=== PATIENT | male | born 2000 | race Two or more races ===

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

== ENCOUNTER 2019-01-13 12:50 | Emergency (ER) | payer MEDICAID ==
[~2019-01-13] VITALS: Ht 170.2 cm; Wt 61.2 kg
[~2019-01-13 12:50] MED LIST changes: +AMOXICILLIN500 MG ORAL; +GUAIFENESIN-CO118 M1 ORAL
[2019-01-13 12:58] VITALS: BP 134/66
[2019-01-13] MEDS ORDERED: NKM (13:01)
--- NOTE | 2019-01-13 13:01 | NUR ---
ED Nurse Note: Patient presents to ER due to painful cold sores on the lips. Reports no fever o chills. Regular, unlabored breathing noted. No facial grimacing or guarding noted. Placed patient in chair.
--- NOTE | 2019-01-13 13:12 | Emergency Room Report ---
History of Present Illness General Chief Complaint: Pain Source: Patient Present Illness HPI 18 y.o. Male with no significant past medical history here c/o a burning rash on corner of his mouth times one day. denies oral intercourse, howevere c/o having this rash before, beenig stressed lateley, and eating spicy food.patient denies sore throa and all other associated Denies chemical exposur or trauma to the face. Complains of tingling the site of the lesions. Denies fever and chill Allergies: Coded Allergies: No Known Allergies (Unverified , 12/20/18) Patient History Past Medical History: see triage record Past Surgical History: unable to obtain Reviewed Nursing Documentation: PMH: Agreed; PSxH: Agreed Nursing Documentation-PMH Past Medical History: No Stated History Hx Cardiac Problems: No Hx Hypertension: No Hx Pacemaker: No Hx Asthma: No Hx COPD: No Hx Diabetes: No Hx Cancer: No Hx Gastrointestinal Problems: No Hx Dialysis: No Hx Neurological Problems: No Hx Cerebrovascular Accident: No Hx Seizures: No Review of Systems All Other Systems: negative except mentioned in HPI Physical Exam Vital Signs Date Time Temp Pulse Resp B/P (MAP) Pulse Ox O2 Delivery O2 Flow Rate FiO2 01/13/19 12:58 98.1 100 16 134/66 99 Room Air Sp02 EP Interpretation: reviewed, normal General Appearance: normal inspection, well appearing Head: normocephalic, atraumatic Eyes: bilateral eye normal inspection, bilateral eye PERRL ENT: normal pharynx, no angioedema, uvula midline, other - vesicular and postular lesions left corner of lower lips Neck: normal inspection, full range of motion, supple Respiratory: normal inspection, lungs clear, no rhonchi Cardiovascular #1: normal inspection, regular rate, rhythm Gastrointestinal: normal inspection, soft Musculoskeletal: normal inspection, back normal Neurologic: normal inspection, alert, oriented x3, responsive Psychiatric: normal inspection, judgement/insight normal Skin: warm/dry, other - vesicular and postular rash left lower lip Lymphatic: normal inspection, no adenopathy Medical Decision Making PA Attestation All diagnosis and treatment plans were reviewed and discussed with my supervising physician Dr. Ackerman Diagnostic Impression: Primary Impression: Cold sore Additional Impression: Impetigo ER Course 18 y.o. Male with no significant past medical history here c/o a burning rash on corner of his mouth times one day. denies oral intercourse, howevere c/o having this rash before, beenig stressed lateley, and eating spicy food.patient denies sore throa and all other associated Denies chemical exposur or trauma to the face. Complains of tingling the site of the lesions. Denies fever and chill Ddx considered but are not limited to cold sore, impetigo, impetigo, eczema Vital signs: are WNL, pt. is afebrile H&PE are most consistent with impetigo and cold soresand impetigo and cold so ORDERS: Acyclovir,acyclovir, Bactroban Bactroban ED INTERVENTIONS: None required at this time. DISCHARGE: At this time pt. is stable for d/c to home. Will provide printed patient care instructions, and any necessary prescriptions. Care plan and follow up instructions have been discussed with the patient prior to discharge. Last Vital Signs Date Time Temp Pulse Resp B/P (MAP) Pulse Ox O2 Delivery O2 Flow Rate FiO2 01/13/19 12:58 98.1 100 16 134/66 99 Room Air Disposition: HOME, SELF-CARE Condition: Stable Scripts Mupirocin (BACTROBAN CR) 15 Gm Cream..g. 1 APPLIC TOPIC THREE TIMES A DAY, #15 GM Prov: Darian Spann 01/13/19 Acyclovir* (ACYCLOVIR*) 400 Mg Tablet 400 MG ORAL THREE TIMES A DAY for 7 Days, #21 TAB Prov: Darian Spann 01/13/19 Patient Instructions: Cold Sore, [id number] Additional Instructions: take medication as directed avoid spicy acidic food .follow up with primary Dr for HSV 1 and 2 testing Darian Spann Jan 13, 2019 13:12
[2019-01-13] MEDS ORDERED: BACTROBAN15 GM TOPIC (13:13)
[2019-01-13] MEDS ORDERED: ACYCLOVIR400 MG ORAL (13:13)
[2019-01-13 13:16] VITALS: BP 134/66
--- NOTE | 2019-01-13 13:17 | NUR ---
ER DISCHARGE NOTE: Patient is cleared to be discharged per ERMD, pt is aox4, on room air, with stable vital signs. pt was given dc and prescription instructions, pt was able to verbalize understanding, pt id band removed. pt is able to ambulate with steady gait. pt took all belongings.
== END 2019-01-13 13:17 | disposition home or self-care (01) ==
LOC: EMR 13:15
DX: B00.1 Herpesviral vesicular dermatitis (principal); L01.00 Impetigo, unspecified
CPT/HCPCS: 99282

== ENCOUNTER 2019-06-20 11:34 | Emergency (ER) | payer MEDICAID ==
[~2019-06-20] VITALS: Ht 165.1 cm; Wt 64.4 kg
[~2019-06-20 11:34] MED LIST changes: +ACYCLOVIR400 MG ORAL; +BACTROBAN15 GM TOPIC; +NKM
[2019-06-20 11:41] VITALS: BP 148/83
--- NOTE | 2019-06-20 12:24 | Emergency Room Report ---
History of Present Illness General Chief Complaint: Male Urogenital Problems Source: Medical Record Present Illness HPI 19-year-old male with no significant past medical history here complaining of 1 day of a painful mass in the left buttocks. Patient denies fall or injury. Denies recent sexual encounter. Denies pus drainage. Denies shaving the area. Denies urinary frequency, constipation, diarrhea or blood in his stool. Denies abdominal pain, nausea vomiting, fever and chills. Has not taken medication for symptom relief. Denies pruritus of.. Reports minimal bleeding after irritating the area. Reports that it only becomes painful when she walks and the mass rubs against the other glut Allergies: Coded Allergies: No Known Allergies (Unverified , 12/20/18) Patient History Past Medical History: see triage record Past Surgical History: unable to obtain Pertinent Family History: none Immunizations: UTD Reviewed Nursing Documentation: PMH: Agreed; PSxH: Agreed Nursing Documentation-PMH Past Medical History: No History, Except For Hx Cardiac Problems: No Hx Hypertension: No Hx Pacemaker: No Hx Asthma: No Hx COPD: No Hx Diabetes: No Hx Cancer: No Hx Gastrointestinal Problems: No Hx Dialysis: No Hx Neurological Problems: No Hx Cerebrovascular Accident: No Hx Seizures: No Review of Systems All Other Systems: negative except mentioned in HPI Physical Exam Vital Signs Date Time Temp Pulse Resp B/P (MAP) Pulse Ox O2 Delivery O2 Flow Rate FiO2 06/20/19 11:41 98.2 72 18 148/83 (104) 98 Room Air Sp02 EP Interpretation: reviewed, normal General Appearance: no apparent distress, alert, GCS 15, non-toxic Head: normocephalic, atraumatic Eyes: bilateral eye normal inspection, bilateral eye PERRL ENT: hearing grossly normal, normal pharynx, no angioedema, normal voice Neck: full range of motion, supple/symm/no masses Respiratory: chest non-tender, lungs clear, normal breath sounds, speaking full sentences Cardiovascular #1: regular rate, rhythm, no edema Gastrointestinal: normal bowel sounds, non tender, soft, non-distended, no guarding, no rebound Rectal: other - foliculitis left glut Genitourinary: no CVA tenderness Musculoskeletal: back normal, gait/station normal, normal range of motion, non- tender Psychiatric: judgement/insight normal, memory normal, mood/affect normal, no suicidal/homicidal ideation Skin: no rash Lymphatic: no adenopathy Medical Decision Making PA Attestation All my diagnosis and treatment plans were reviewed ad discussed with my supervising physician Dr. Roger Diagnostic Impression: Primary Impression: Folliculitis ER Course 19-year-old male with no significant past medical history here complaining of 1 day of a painful mass in the left buttocks. Patient denies fall or injury. Denies recent sexual encounter. Denies pus drainage. Denies shaving the area. Denies urinary frequency, constipation, diarrhea or blood in his stool. Denies abdominal pain, nausea vomiting, fever and chills. Has not taken medication for symptom relief. Denies pruritus of.. Reports minimal bleeding after irritating the area. Reports that it only becomes painful when she walks and the mass rubs against the other glut Ddx considered but are not limited to : Cellulitis, folliculitis, superficial infection, abscess Vital signs: are WNL, pt. is afebrile H&PE are most consistent with: Folliculitis ORDERS: Augmentin, hydrocortisone cream ED INTERVENTIONS: None required at this time. DISCHARGE: At this time pt. is stable for d/c to home. Will provide printed patient care instructions, and any necessary prescriptions. Care plan and follow up instructions have been discussed with the patient prior to discharge. Patient to follow-up with her primary care provider worsening symptoms return to the emergency room Last Vital Signs Date Time Temp Pulse Resp B/P (MAP) Pulse Ox O2 Delivery O2 Flow Rate FiO2 06/20/19 11:41 98.2 72 18 148/83 (104) 98 Room Air Disposition: HOME, SELF-CARE Condition: Stable Scripts Hydrocortisone/Aloe Vera 1%* (HYDROCORTISONE-ALOE 1% CREAM*) Y Cr 1 APPLIC TOPIC Q6H PRN for Itching, #30 GM Prov: Darian Spann 06/20/19 Amoxicillin/Potassium Clav 875-125* (AUGMENTIN 875-125 TABLET*) 1 Each Tablet 1 TAB ORAL TWICE A DAY for 7 Days, #14 TAB Prov: Darian Spann 06/20/19 Referrals: NON PHYSICIAN (PCP) Patient Instructions: Folliculitis Additional Instructions: Take medication as directed follow-up with primary care provider avoid irritating the area as it may turn into an abscess. Darian Spann Jun 20, 2019 12:24
[2019-06-20] MEDS ORDERED: HYDROCORTISONE-30 GM TOPIC (12:25)
[2019-06-20] MEDS ORDERED: AUGMENTIN 875-1 EAC1 ORAL (12:25)
--- NOTE | 2019-06-20 12:30 | NUR ---
ED Nurse Note: Patient is being discharged from medical care. Patient awake, alert,oriented x4. Regular, unlabored breathing noted. D/C instruction and presriptions given. Patient ambulated out with steady gait.
[2019-06-20 12:37] LABS: APPEARANCE,URINE CLEAR; BILIRUBIN, URINE NEGATIVE (NEGATIVE); COLOR,URINE PALE YELLOW; GLUCOSE, URINE (UA) NEGATIVE (NEGATIVE); KETONES,URINE NEGATIVE (NEGATIVE); LEUKOCYTE ESTERASE ,URINE NEGATIVE (NEGATIVE); NITRITE,URINE NEGATIVE (NEGATIVE); PH,URINE 7 (4.5-8.0); PROTEIN,URINE NEGATIVE (NEGATIVE); UROBILINOGEN,URINE NORMAL MG/DL (0.0-1.0)
== END 2019-06-20 12:30 | disposition home or self-care (01) ==
LOC: EMR 12:15
DX: L73.9 Follicular disorder, unspecified (principal)
CPT/HCPCS: 81003; 99282

== ENCOUNTER 2019-07-12 03:35 | Emergency (ER) | payer MEDICAID ==
[~2019-07-12] VITALS: Ht 167.6 cm; Wt 64.4 kg
[~2019-07-12 03:35] MED LIST changes: +AUGMENTIN 875-1 EAC1 ORAL; +HYDROCORTISONE-30 GM TOPIC
--- NOTE | 2019-07-12 03:46 | NUR ---
ED Nurse Note: Patient presents with complaints of abdominal pain and diarrhea x 2 days.
--- NOTE | 2019-07-12 03:56 | Emergency Room Report ---
History of Present Illness General Chief Complaint: Abdominal Pain Source: Patient Present Illness HPI Is a 19-year-old male with no past medical history. He presents with chief complaint abdominal pain with nausea and diarrhea. Onset was around 10 PM. Whole family here with the same thing. They ate pork for dinner. Sister is here and mom is here for the same thing. He has some mild cramping pain. 6 out of 10. Has nausea but no vomiting. Loose stool. Nothing made better. Nothing made it worse. Allergies: Coded Allergies: No Known Allergies (Unverified , 12/20/18) Patient History Past Medical History: see triage record, old chart reviewed Past Surgical History: none Pertinent Family History: none Social History: Denies: smoking Immunizations: other Reviewed Nursing Documentation: PMH: Agreed; PSxH: Agreed Nursing Documentation-PMH Past Medical History: No Stated History Hx Cardiac Problems: No Hx Hypertension: No Hx Pacemaker: No Hx Asthma: No Hx COPD: No Hx Diabetes: No Hx Cancer: No Hx Gastrointestinal Problems: No Hx Dialysis: No Hx Neurological Problems: No Hx Cerebrovascular Accident: No Hx Seizures: No Review of Systems Eye: Denies: eye pain, blurred vision ENT: Denies: ear pain, nose congestion, throat swelling Respiratory: Denies: cough, shortness of breath Cardiovascular: Denies: chest pain, palpitations Gastrointestinal: Reports: abdominal pain, diarrhea, nausea; Denies: vomiting Musculoskeletal: Denies: back pain, joint pain Skin: Denies: rash Neurological: Denies: headache, numbness Endocrine: Denies: increased thirst, increased urine Hematologic/Lymphatic: Denies: easy bruising All Other Systems: negative except mentioned in HPI Physical Exam Vital Signs Date Time Temp Pulse Resp B/P (MAP) Pulse Ox O2 Delivery O2 Flow Rate FiO2 07/12/19 03:46 98.6 82 18 120/76 (91) 98 Room Air Vitals normal Sp02 EP Interpretation: reviewed, normal General Appearance: well appearing, no apparent distress, alert Head: normocephalic, atraumatic Eyes: bilateral eye PERRL, bilateral eye EOMI ENT: hearing grossly normal, normal pharynx Neck: full range of motion, supple, no meningismus Respiratory: chest non-tender, lungs clear, normal breath sounds Cardiovascular #1: regular rate, rhythm, no murmur Gastrointestinal: no mass, no organomegaly, no bruit, non-distended, abnormal bowel sounds - hyperactive, tenderness - mild Musculoskeletal: back normal, gait/station normal, normal range of motion Psychiatric: mood/affect normal Medical Decision Making Diagnostic Impression: Primary Impression: Abdominal pain Qualified Codes: R10.84 - Generalized abdominal pain Additional Impression: Diarrhea Qualified Codes: R19.7 - Diarrhea, unspecified ER Course This patient presents with abdominal pain and diarrhea. Most likely food poisoning versus gastroenteritis. His whole family here for the same thing. No evidence of acute abdomen. No evidence of any obstruction. Will discharge home. Last Vital Signs Date Time Temp Pulse Resp B/P (MAP) Pulse Ox O2 Delivery O2 Flow Rate FiO2 07/12/19 03:46 98.6 82 18 120/76 (91) 98 Room Air Status: improved Disposition: HOME, SELF-CARE Condition: Stable Referrals: [facility],REFERRING (PCP) Additional Instructions: Follow-up with your doctor in 7 days. May take up to be small for diarrhea. Do not take antidiarrhea medication. Return if symptoms worsen. Jose Quiles MD Jul 12, 2019 03:56
[2019-07-12 04:07] VITALS: BP 120/76
--- NOTE | 2019-07-12 04:49 | NUR ---
ED Nurse Note: Patient cleared for discharge, verbalized understanding of discharge instructions, departed with all belongings and will be taken home by his mom. ID band removed.
[2019-07-12 04:50] VITALS: BP 120/76
== END 2019-07-12 04:52 | disposition home or self-care (01) ==
LOC: EMR 03:54
DX: R10.84 Generalized abdominal pain (principal); R19.7 Diarrhea, unspecified
CPT/HCPCS: 99282

== ENCOUNTER 2019-10-16 19:49 | Emergency (ER) | payer MEDICAID ==
[~2019-10-16] VITALS: Ht 165.1 cm; Wt 68.0 kg
--- NOTE | 2019-10-16 20:00 | NUR ---
ED Nurse Note: PT walked in to ED from home for C/O dysuria and increased in frequency and urgency of urination since . Pt also report feeling constipated. last BP was . pt states when he wiped his anus area, he noticed blood. pt is alert x4.
[2019-10-16 20:03] VITALS: BP 130/76
[2019-10-16 20:16] LABS: APPEARANCE,URINE CLEAR; BILIRUBIN, URINE NEGATIVE (NEGATIVE); COLOR,URINE PALE YELLOW; GLUCOSE, URINE (UA) NEGATIVE (NEGATIVE); KETONES,URINE NEGATIVE (NEGATIVE); LEUKOCYTE ESTERASE ,URINE NEGATIVE (NEGATIVE); NITRITE,URINE NEGATIVE (NEGATIVE); PH,URINE 6 (4.5-8.0); PROTEIN,URINE NEGATIVE (NEGATIVE); UROBILINOGEN,URINE NORMAL MG/DL (0.0-1.0)
--- NOTE | 2019-10-16 20:38 | NUR ---
ED Nurse Note: X RAY AT BEDSIDE. KUB PERFORMED
[2019-10-16] MEDS ORDERED: CITRATE OF MAG296 ML PO (20:49)
[2019-10-16] MEDS ORDERED: COLACE100 MG ORAL (20:49)
[2019-10-16] MEDS ORDERED: ANUSOL-HC25 MG RECTAL (20:49)
[2019-10-16 20:51] VITALS: BP 128/76
--- NOTE | 2019-10-17 19:16 | Diagnostic Imaging Report ---
Indication: Abdominal pain and rectal bleeding Technique: Supine view of the abdomen Comparison: none Findings: Bowel gas pattern is unremarkable. No unusual masses or calcifications. Impression: No acute process
--- NOTE | 2019-10-18 14:30 | Emergency Room Report ---
History of Present Illness General Chief Complaint: Male Urogenital Problems Source: Patient Present Illness HPI 19-year-old male presents ED for evaluation. Complaining of increased urinary frequency and blood in his stool x1 week. Denies dysuria. Denies hematuria. States he is straining with bowel movements. Denies any abdominal pain. Denies nausea or vomiting. Denies any blood thinners. No other aggravating relieving factors. Denies any other associated symptoms Allergies: Coded Allergies: No Known Allergies (Unverified , 12/20/18) Patient History Past Medical History: none Past Surgical History: none Pertinent Family History: none Social History: Denies: smoking, alcohol use, drug use Immunizations: UTD Reviewed Nursing Documentation: PMH: Agreed; PSxH: Agreed Nursing Documentation-PMH Past Medical History: No Stated History Hx Cardiac Problems: No Hx Hypertension: No Hx Pacemaker: No Hx Asthma: No Hx COPD: No Hx Diabetes: No Hx Cancer: No Hx Gastrointestinal Problems: No Hx Dialysis: No Hx Neurological Problems: No Hx Cerebrovascular Accident: No Hx Seizures: No Review of Systems All Other Systems: negative except mentioned in HPI Physical Exam Vital Signs Date Time Temp Pulse Resp B/P (MAP) Pulse Ox O2 Delivery O2 Flow Rate FiO2 10/16/19 19:55 98.1 84 19 137/76 (96) 99 Room Air Sp02 EP Interpretation: reviewed, normal General Appearance: no apparent distress, alert, GCS 15, non-toxic Head: normocephalic, atraumatic Eyes: bilateral eye normal inspection, bilateral eye PERRL ENT: hearing grossly normal, normal pharynx, no angioedema, normal voice Neck: full range of motion, supple/symm/no masses Respiratory: chest non-tender, lungs clear, normal breath sounds, speaking full sentences Cardiovascular #1: regular rate, rhythm, no edema Cardiovascular #2: 2+ carotid (R), 2+ carotid (L), 2+ radial (R), 2+ radial (L) , 2+ dorsalis pedis (R), 2+ dorsalis pedis (L) Gastrointestinal: normal bowel sounds, non tender, soft, non-distended, no guarding, no rebound Rectal: hemorrhoids Genitourinary: normal inspection, no CVA tenderness Musculoskeletal: back normal, normal range of motion, gait/station normal, non- tender Neurologic: alert, motor strength/tone normal, oriented x3, sensory intact, responsive, speech normal Psychiatric: judgement/insight normal, memory normal, mood/affect normal, no suicidal/homicidal ideation Reflexes: 3+ bicep (R), 3+ bicep (L), 3+ tricep (R), 3+ tricep (L), 3+ knee (R) , 3+ knee (L) Lymphatic: no adenopathy Medical Decision Making Diagnostic Impression: Primary Impression: Hemorrhoids Qualified Codes: K64.9 - Unspecified hemorrhoids Additional Impression: Constipation Qualified Codes: K59.00 - Constipation, unspecified ER Course Hospital Course 19 yo M presents with increased urianry frequency, blood in stool Differential diagnosis includes- UTI, constipatino, hemorroids Clinical course Patient placed on stretcher. After initial history, exam reveals male in no acute distress. There is no abdominal pain. Abdomen soft with no guarding or rebound. On rectal exam there is discomfort and hemorrhoids noted. I ordered UA, KUB UA - unremarkable KUB - copious stool noted I discussed findings with the patient. Will discharge to home with stool softeners, suppository. Safe for discharge and close outpatient follow-up. I will provide referrals I feel this is a highly complex case requiring extensive working including EKG/ Rhythm strip, Xray/CT/US, Blood/urine lab work, repeat exams while in ED, and administration of strong opiates/narcotics for pain control, admission to hospital or close patient follow up. Diagnosis - constipation, hemorrhoids Stable and discharged to home with Rx anusol, Mag citrate, Colace. instructed on high-fiber diet. Followup with PMD. Return to ED if symptoms recur or worsen Labs Test 10/16/19 20:05 Urine Color Pale yellow Urine Appearance Clear Urine pH 6 (4.5-8.0) Urine Specific Fleming 1.010 (1.005-1.035) Urine Protein Negative (NEGATIVE) Urine Glucose (UA) Negative (NEGATIVE) Urine Ketones Negative (NEGATIVE) Urine Blood 2+ (NEGATIVE) Urine Nitrite Negative (NEGATIVE) Urine Bilirubin Negative (NEGATIVE) Urine Urobilinogen Normal MG/DL (0.0-1.0) Urine Leukocyte Esterase Negative (NEGATIVE) Urine RBC 0-2 /HPF (0 - 0) Urine WBC 0-2 /HPF (0 - 0) Urine Squamous Epithelial Cells None /LPF (NONE/OCC) Urine Bacteria None /HPF (NONE) Other X-Ray Diagnostic Results Other X-Ray Diagnostic Results : X-Ray ordered: KUB # of Views/Limited Vs Complete: 1 View Indication: Pain EP Interpretation: Yes Interpretation: nonspecific bowel gas, no sbo, other - fecal impaction Impression: Other - constipation Electronically Signed by: Electronically signed by Tam Baker MD Last Vital Signs Date Time Temp Pulse Resp B/P (MAP) Pulse Ox O2 Delivery O2 Flow Rate FiO2 10/16/19 20:51 98.0 82 17 128/76 98 Room Air Status: improved Disposition: HOME, SELF-CARE Condition: Stable Scripts Magnesium Citrate (CITRATE OF MAGNESIA) 296 Ml Solution 150 ML PO DAILY for 2 Days, #296 ML Prov: Tam Baker MD 10/16/19 Docusate Sodium* (COLACE*) 100 Mg Capsule 100 MG ORAL THREE TIMES A DAY for 10 Days, #30 CAP Prov: Tam Baker MD 10/16/19 Hydrocortisone Acetate* (ANUSOL-HC*) 25 Mg Supp.rect 1 SUPP RECTAL TWICE A DAY for 5 Days, #10 SUPP Prov: Tam Baker MD 10/16/19 Referrals: Mumtaz Contreras [facility] Patient Instructions: Constipation, Adult, [id number] Tam Baker MD Oct 18, 2019 14:30
== END 2019-10-16 20:51 | disposition home or self-care (01) ==
LOC: EMR 20:17
DX: K64.9 Unspecified hemorrhoids (principal); K59.00 Constipation, unspecified; R35.0 Frequency of micturition
CPT/HCPCS: 74018; 81003; Z7502; 99283